=== PATIENT | female | born 1975 | race African-American/Black ===

== ENCOUNTER 2019-05-21 10:06 | Emergency (ER) | payer MEDICARE ==
[~2019-05-21] VITALS: Ht 170.2 cm; Wt 106.0 kg
[2019-05-21] MEDS ORDERED: BENA5TAB6 PO (10:39)
[2019-05-21] MEDS ORDERED: CARB200T PO (10:39)
[2019-05-21] MEDS ORDERED: MORPHINE SULFATE 10 MG/ML CPJ IV ONE (11:00)
[2019-05-21] MEDS ORDERED: KETOROLAC 60MG/2ML VIAL IM ONE (11:00)
[2019-05-21 13:28] VITALS: BP 137/98
== END 2019-05-21 13:31 | disposition home or self-care (01) ==
LOC: ER 10:17
DX: S46.912A Strain of unspecified muscle, fascia and tendon at shoulder and upper arm level, left arm, initial encounter (principal); I10 Essential (primary) hypertension; R56.9 Unspecified convulsions; Z98.890 Other specified postprocedural states; Z85.841 Personal history of malignant neoplasm of brain; Z88.6 Allergy status to analgesic agent; W18.39XA Other fall on same level, initial encounter; Y93.89 Activity, other specified; Y92.89 Other specified places as the place of occurrence of the external cause; Y99.8 Other external cause status
CPT/HCPCS: 73030; 81025; 96372; 96374; 99283; J1885; J2270; A4565

== ENCOUNTER 2021-06-30 14:27 | Inpatient (IN) | payer MEDICARE ==
[~2021-06-30] VITALS: Ht 170.2 cm; Wt 107.2 kg
[~2021-06-30 14:27] MED LIST: BENA5TAB6 PO; CARB200T PO
[2021-06-30] MEDS ORDERED: amlodipine (14:37)
[2021-06-30] MEDS ORDERED: ONDANSETRON HCL 4MG/2ML INJ IV STA (16:08)
[2021-06-30] MEDS ORDERED: LEVETIRACETAM 1000MG PREMIX 100 ML IV ONE (16:15)
[2021-06-30] MEDS ORDERED: SODIUM CHLORIDE 0.9% 1,000 ML IV ONE (16:15)
[2021-06-30 16:43] LABS: BASOPHILS % 1.1 % (0.0-2.0); EOSINOPHILS % 1.9 % (0.0-5.0); HEMATOCRIT. 42.5 % (36.0-48.0); HEMOGLOBIN. 14.3 g/dL (12.0-16.0); LYMPHOCYTES % 21.1 % (20.0-50.0); MEAN CORPUSCULAR HEMOGLOBIN 27.6 pg (28.0-32.0); MEAN CORPUSCULAR VOLUME 82.3 fL (81.0-99.0); MEAN PLATELET VOLUME 8.4 fl (7.4-10.4); NEUTROPHILS % 69.9 % (40.0-76.0); PLATELET 287 x1000/uL (130-400); RED BLOOD CELL COUNT 5.17 mill/uL (4.2-5.4); RED CELL DISTRIBUTION WIDTH 13.6 % (11.6-14.6)
[2021-06-30 16:47] LABS: CHLORIDE 98 mEq/L (98-107)
[2021-06-30 16:49] LABS: HCG SCREEN NEGATIVE
[2021-06-30 16:51] LABS: ETHANOL BLOOD < 10 mg/dL
[2021-06-30 16:54] LABS: BETA HYDROXYBUTYRATE 0.4 mMol/L (0.0-0.3)
[2021-06-30 16:56] LABS: CARBAMAZEPINE 8.3 ug/mL (4-12)
[2021-06-30 21:53] LABS: CLARITY URINE CLEAR (CLEAR); COLOR URINE YELLOW (YELLOW); KETONES URINE TRACE (NEGATIVE); LEUKOCYTE ESTERASE URINE NEGATIVE (NEGATIVE); NITRITE URINE NEGATIVE (NEGATIVE); OCCULT BLOOD URINE NEGATIVE (NEGATIVE); PROTEIN URINE NEGATIVE (NEGATIVE); SPECIFIC GRAVITY URINE 1.019 (1.005-1.030); UROBILINOGEN URINE 0.2 E.U./dL (0.2-1.0)
[2021-06-30 22:09] LABS: CANNABINOID URINE SCREEN NEGATIVE (NEGATIVE); OPIATES URINE SCREEN NEGATIVE (NEGATIVE); PHENCYCLIDINE URINE SCREEN NEGATIVE (NEGATIVE)
[2021-06-30 22:10] LABS: *AMPHETAMINES SCREEN URINE NEGATIVE (NEGATIVE); *BARBITURATES SCREEN URINE NEGATIVE (NEGATIVE); *BENZODIAZEPINES SCREEN URINE NEGATIVE (NEGATIVE); *COCAINE SCREEN URINE NEGATIVE (NEGATIVE); METHADONE URINE SCREEN NEGATIVE (NEGATIVE)
[2021-06-30] MEDS ORDERED: ACETAMINOPHEN 325MG TABLET PO ONE (22:15)
[2021-07-01] MEDS: ACETAMINOPHEN 325MG TABLET PO PRN (06:43)
[2021-07-01] MEDS: PANTOPRAZOLE 40MG DR TABLET PO SCH (06:43)
[2021-07-01] MEDS: LEVETIRACETAM 250MG TABLET PO SCH ×2 (08:38→21:18)
[2021-07-01] MEDS: ENOXAPARIN 30MG/0.3ML SYR SUBCUT SCH ×2 (08:38→21:26)
[2021-07-01] MEDS ORDERED: DEXTROSE 50% WATER 50ML SYRINGE IV PRN (10:30)
[2021-07-01] MEDS: BLOOD SUGAR DIAGNOSTIC STRIP TEST SCH ×3 (11:26→21:25)
[2021-07-01] MEDS: INSULIN LISPRO 100 UNITS/ML SUBCUT SCH ×3 (11:59→21:18)
[2021-07-01] MEDS ORDERED: IPRATROPIUM/ALBUTEROL 0.5-3(2.5)MG/3ML NEB NEB PRN (14:00)
[2021-07-01] MEDS ORDERED: ACETAMINOPHEN 650MG SUPP PR PRN (14:00)
[2021-07-01] MEDS ORDERED: ONDANSETRON HCL 4MG/2ML INJ IV PRN (14:00)
[2021-07-01] MEDS ORDERED: DOCUSATE SODIUM 100MG CAPSULE PO PRN (14:00)
[2021-07-01] MEDS ORDERED: NA PHOS,M-B/NA PHOS,DI-BA ENEMA 118ML PR PRN (14:00)
[2021-07-01] MEDS ORDERED: DIPHENHYDRAMINE 50MG/ML VIAL IV PRN (14:00)
[2021-07-01] MEDS ORDERED: MAGNESIUM/ALUMINUM HYDROXIDE/SIMETHICONE 30ML UDC PO PRN (14:00)
[2021-07-01] MEDS ORDERED: GUAIFENESIN 200MG/10ML SUGAR FREE UDC PO PRN (14:00)
[2021-07-01] MEDS ORDERED: LORAZEPAM 2MG/ML CPJ IV PRN (14:00)
[2021-07-01] MEDS ORDERED: CLONIDINE 0.1MG TABLET PO PRN (14:00)
[2021-07-01] MEDS ORDERED: HYDROCODONE/ACETAMINOPHEN 5/325MG TABLET PO PRN (14:00)
[2021-07-01] MEDS ORDERED: INSULIN GLARGINE UD 100 UNITS/ML SYR SUBCUT NR (15:00)
[2021-07-01 15:05] LABS: CREATINE KINASE 149 IU/L (26-192)
[2021-07-01 15:06] LABS: CREATINE KINASE MB FRACTION < 1.0 ng/mL (0.5-3.6)
[2021-07-01] MEDS: CARBAMAZEPINE 100MG TABLET CHEW PO SCH (16:46)
[2021-07-01 23:02] LABS: CREATINE KINASE MB FRACTION < 1.0 ng/mL (0.5-3.6)
[2021-07-01 23:05] LABS: CREATINE KINASE 180 IU/L (26-192)
[2021-07-02] VITALS: BP 166/98
[2021-07-02] MEDS ORDERED: AMLO10TA80 PO (00:21)
[2021-07-02] MEDS ORDERED: ATOR20TA65 PO (00:21)
[2021-07-02] MEDS ORDERED: BACL-141 PO (00:21)
[2021-07-02] MEDS ORDERED: HYDR-459 PO (00:21)
[2021-07-02] MEDS ORDERED: ARIP5TAB58 PO (00:21)
[2021-07-02] MEDS ORDERED: TRAZ-252 PO (00:21)
[2021-07-02 00:30] VITALS: BP 166/98
[2021-07-02 04:00] VITALS: BP 115/69
[2021-07-02] MEDS: PANTOPRAZOLE 40MG DR TABLET PO SCH (05:54)
[2021-07-02] MEDS: ACETAMINOPHEN 325MG TABLET PO PRN ×2 (05:58→11:11)
[2021-07-02 06:38] LABS: CHLORIDE 101 mEq/L (98-107)
[2021-07-02 06:51] LABS: BASOPHILS % 1.7 % (0.0-2.0); EOSINOPHILS % 7.5 % (0.0-5.0); HEMATOCRIT. 39.1 % (36.0-48.0); HEMOGLOBIN. 13.3 g/dL (12.0-16.0); LYMPHOCYTES % 45.2 % (20.0-50.0); MEAN CORPUSCULAR HEMOGLOBIN 27.7 pg (28.0-32.0); MEAN CORPUSCULAR VOLUME 81.1 fL (81.0-99.0); NEUTROPHILS % 38.6 % (40.0-76.0); PLATELET 272 x1000/uL (130-400); RED BLOOD CELL COUNT 4.82 mill/uL (4.2-5.4); RED CELL DISTRIBUTION WIDTH 13.2 % (11.6-14.6)
[2021-07-02 06:52] LABS: LDL CHOLESTEROL 95 mg/dL (5-100)
[2021-07-02 06:54] LABS: T4 FREE 0.87 ng/dL (0.76-1.46)
[2021-07-02 06:55] LABS: HDL CHOLESTEROL 47 mg/dL (40-59)
[2021-07-02] MEDS: BLOOD SUGAR DIAGNOSTIC STRIP TEST SCH ×3 (06:57→17:20)
[2021-07-02 08:00] VITALS: BP 118/80
[2021-07-02] MEDS ORDERED: PNEUMOCOCCAL 23-VAL P-SAC VAC 0.5 ML IM ONE (08:00)
[2021-07-02] MEDS ORDERED: INSULIN GLARGINE UD 100 UNITS/ML SYR SUBCUT SCH (10:00)
[2021-07-02] MEDS: LEVETIRACETAM 250MG TABLET PO SCH (10:53)
[2021-07-02] MEDS: ENOXAPARIN 30MG/0.3ML SYR SUBCUT SCH (10:55)
[2021-07-02] MEDS ORDERED: POTASSIUM CHLORIDE 20MEQ TABLET SR PO SCH (11:00)
[2021-07-02] MEDS: INSULIN LISPRO 100 UNITS/ML SUBCUT SCH ×3 (11:09→17:50)
[2021-07-02] MEDS: CARBAMAZEPINE 100MG TABLET CHEW PO SCH ×3 (11:10→17:00)
[2021-07-02 12:00] VITALS: BP 121/87
[2021-07-02] MEDS ORDERED: KEPP500 MT (12:54)
[2021-07-02] MEDS ORDERED: INSLIS SUBCUT (13:02)
[2021-07-02] MEDS ORDERED: INSU100I28 SQ (13:02)
[2021-07-02 17:24] VITALS: BP 128/74
== END 2021-07-02 19:07 | disposition home health service (06) | DRG 101 ==
LOC: ER 14:38 → MICUSO 19:58 → EDBEDREQTM 21:08 → EDBEDREQ 21:08 → 6WST 07-01 22:11
PROVIDERS: ADMIT Internal Medicine; ATTEND Internal Medicine
DX: G40.909 Epilepsy, unspecified, not intractable, without status epilepticus (principal); E87.1 Hypo-osmolality and hyponatremia; I10 Essential (primary) hypertension; E87.6 Hypokalemia; E66.9 Obesity, unspecified; E11.65 Type 2 diabetes mellitus with hyperglycemia; G93.89 Other specified disorders of brain; Z79.4 Long term (current) use of insulin; Z79.899 Other long term (current) drug therapy; Z82.49 Family history of ischemic heart disease and other diseases of the circulatory system; Z68.37 Body mass index [BMI] 37.0-37.9, adult; Z88.6 Allergy status to analgesic agent
CPT/HCPCS: 36415; 70551; 71045; 80053; 80061; 80156; 80305; 80320; 81003; 82010; 82550; 82553; 82962; 83036; 84439; 84443; 84484; 84703; 85025; 90732; 93005; 93306; 93970; 97162; 99291; J1650; J1815; J1953; J2405; J7030; J7040; G0480

== ENCOUNTER 2024-08-12 22:25 | Emergency (ER) | payer BC, MEDICAID ==
[~2024-08-12] VITALS: Ht 170.2 cm; Wt 117.4 kg
[~2024-08-12 22:25] MED LIST changes: +AMLO10TA80 PO; +ARIP5TAB51 PO; +ATOR20TA65 PO; +BACL-141 PO; -BENA5TAB6 PO; +HYDR-459 PO; +INSLIS SUBCUT; +INSU100I28 SQ; +KEPP500 MT; +TRAZ-252 PO
[2024-08-12 22:52] VITALS: TEMP 98.3; O2SAT 98
[2024-08-13 04:00] VITALS: BP 148/90; PULSE 85; RESP 16; O2SAT 100
[2024-08-13] MEDS: ACETAMINOPHEN WITH CODEINE 300/30MG TABLET PO STA (04:06)
[2024-08-13] MEDS: KETOROLAC 30MG/ML VIAL IM STA (04:06)
[2024-08-13] MEDS ORDERED: NAPR-681 PO (04:07)
[2024-08-13] MEDS ORDERED: T3 PO (04:07)
== END 2024-08-13 04:15 | disposition home or self-care (01) ==
LOC: ER 22:25
DX: S70.01XA Contusion of right hip, initial encounter (principal); M54.50 Low back pain, unspecified; M25.551 Pain in right hip; W18.39XA Other fall on same level, initial encounter; Y93.89 Activity, other specified; Y92.89 Other specified places as the place of occurrence of the external cause; Y99.8 Other external cause status
CPT/HCPCS: 99283; 73502; 96372; J1885